=== PATIENT | male | born 1990 | race African-American/Black ===

== ENCOUNTER 2019-11-17 23:58 | Emergency (ER) | payer OTHER ==
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
== END 2019-11-18 01:35 | disposition left against medical advice (07) ==
LOC: MW.ED 23:58
DX: S60.811A Abrasion of right wrist, initial encounter (principal); R47.81 Slurred speech; F10.129 Alcohol abuse with intoxication, unspecified; V53.5XXA Driver of pick-up truck or van injured in collision with car, pick-up truck or van in traffic accident, initial encounter
CPT/HCPCS: 99283; 99284

== ENCOUNTER 2023-11-21 18:48 | Emergency (ER) | payer OTHER | END 2023-11-21 21:16 | disposition home or self-care (01) | LOC: MW.ED 18:48 | DX: T33.832A Superficial frostbite of left toe(s), initial encounter (principal); X58.XXXA Exposure to other specified factors, initial encounter | CPT/HCPCS: 99283 ==